=== PATIENT | female | born 1970 | race Two or more races ===

== ENCOUNTER 2017-06-23 16:50 | Emergency (ER) | payer BC ==
[~2017-06-23] VITALS: Ht 160 cm; Wt 85.3 kg
[2017-06-23] MEDS ORDERED: MUPIROCIN22 GM TOPIC (17:04)
[2017-06-23] MEDS ORDERED: BACTRIM DS TAB1 EAC1 ORAL (17:04)
--- NOTE | 2017-06-23 17:19 | Emergency Room Report ---
History of Present Illness General Chief Complaint: Allergic Reaction Source: Patient Present Illness HPI Patient is a 47-year-old female brought in by self after increased generalized body rash. Patient noticed increased itching to the extremities this morning. Patient recently been started on Bactrim for vaginal infection along with mupirocin. Patient denied any fever. She denied any shortness of breath. The patient had no noted mouth lesions. Allergies: Coded Allergies: No Known Allergies (Unverified , 06/23/17) Patient History Past Medical History: see triage record Last Menstrual Period: 06/14/17 Reviewed Nursing Documentation: PMH: Agreed; PSxH: Agreed Nursing Documentation-PMH Past Medical History: No Stated History Review of Systems All Other Systems: negative except mentioned in HPI Physical Exam Vital Signs Date Time Temp Pulse Resp B/P (MAP) Pulse Ox O2 Delivery O2 Flow Rate FiO2 06/23/17 17:00 98.1 91 17 145/88 95 Room Air 98.1 General Appearance: well appearing, no apparent distress, alert, GCS 15 Head: normocephalic, atraumatic ENT: hearing grossly normal, normal voice Neck: full range of motion, supple Respiratory: no respiratory distress, speaking full sentences Musculoskeletal: no calf tenderness Neurologic: normal gait Psychiatric: mood/affect normal Skin: other - generalized fine raised patches Medical Decision Making Diagnostic Impression: Primary Impression: Allergic reaction ER Course Patient presented for skin rash. Differential diagnosis included was not limited to erythema multiforme, allergic reaction, photosensitivity reaction among others. Patient has a benign exam and does not appear to require any further imaging or laboratory testing at this time. patient was given prednisone as well as benadryl. The patient appears to have allergic reaction to sulfa. This may be erythema multiforme. The patient was advised to discontinue Bactrim.The patient is advised to follow up with primary care doctor in 1-2 days. Patient is advised to return if any worsening condition or if any changes in status that are concerning. This report is dictated with [employer] trip rider software which may occasionally lead to discrepancies related to use of this software. Last Vital Signs Date Time Temp Pulse Resp B/P (MAP) Pulse Ox O2 Delivery O2 Flow Rate FiO2 06/23/17 17:00 98.1 91 17 145/88 95 Room Air 98.1 Status: unchanged Disposition: ADMITTED INPATIENT Condition: Serious Jeramie Bashir Jun 23, 2017 17:19
[2017-06-23] MEDS ORDERED: PREDNISONE20 MG ORAL (18:13)
[2017-06-23] MEDS ORDERED: BENADRYL25 MG ORAL (18:13)
[2017-06-23 18:38] VITALS: BP 131/85
[2017-06-23 18:39] VITALS: BP 131/85
== END 2017-06-23 19:26 | disposition other institution (70) ==
LOC: EMR 17:15
DX: T78.40XA Allergy, unspecified, initial encounter (principal); X58.XXXA Exposure to other specified factors, initial encounter; R21 Rash and other nonspecific skin eruption
CPT/HCPCS: 81025; 99285; J7512

== ENCOUNTER 2017-10-08 12:53 | Emergency (ER) | payer BC ==
[~2017-10-08] VITALS: Ht 160 cm; Wt 83.9 kg
[~2017-10-08 12:53] MED LIST: BACTRIM DS TAB1 EAC1 ORAL; BENADRYL25 MG ORAL; MUPIROCIN22 GM TOPIC; PREDNISONE20 MG ORAL
[2017-10-08 13:18] VITALS: BP 154/86
--- NOTE | 2017-10-08 13:39 | Emergency Room Report ---
History of Present Illness General Chief Complaint: Back Pain-No Injury Source: Patient Present Illness HPI Pt. presents to the ED c/o 8 out of 10 in severity right-sided back pain that radiates between the shoulder blade and the mid back 2 days. Patient denies history of previous episodes. Patient states that she does have strenuous work at her job. 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 Patient denies trauma or fall otherwise she denies fevers, chills, recent spinal procedures or history of cancer. Patient denies cough or shortness of breath. Denies rash, paresthesias, saddle anesthesia or incontinence. Allergies: Coded Allergies: SULFA (SULFONAMIDE ANTIBIOTICS) (Verified Allergy, Unknown, 06/23/17) Patient History Past Medical History: see triage record Past Surgical History: none Pertinent Family History: none Last Menstrual Period: 2 weeks ago Now: No Reviewed Nursing Documentation: PMH: Agreed; PSxH: Agreed Nursing Documentation-PMH Past Medical History: No Stated History Review of Systems All Other Systems: negative except mentioned in HPI Physical Exam Vital Signs Date Time Temp Pulse Resp B/P (MAP) Pulse Ox O2 Delivery O2 Flow Rate FiO2 10/08/17 13:02 80 18 154/86 98 Room Air 10/08/17 13:18 98.0 98.0 Sp02 EP Interpretation: reviewed, normal General Appearance: no apparent distress, alert, GCS 15, non-toxic Head: normocephalic, atraumatic ENT: hearing grossly normal, normal voice Neck: full range of motion Respiratory: chest non-tender, lungs clear, normal breath sounds, speaking full sentences Cardiovascular #1: regular rate, rhythm, no edema Genitourinary: normal inspection Musculoskeletal: back normal, gait/station normal, normal range of motion, tender - TTP right paraspinal musculature in the thoracic area, and radiates out near shoulder blade. no midline or bony ttp, FROm of the right arm. pt. ambulatory. Neurologic: alert, oriented x3, responsive, motor strength/tone normal, sensory intact, normal gait, speech normal, grossly normal Psychiatric: judgement/insight normal Skin: normal color, no rash, warm/dry, well hydrated Medical Decision Making PA Attestation Dr. Bashir is my supervising Physician whom patient management has been discussed with. Diagnostic Impression: Primary Impression: Muscle strain of right upper back Qualified Codes: S29.012A - Strain of muscle and tendon of back wall of thorax , initial encounter Additional Impression: Muscle strain of right scapular region Qualified Codes: S46.911A - Strain of unspecified muscle, fascia and tendon at shoulder and upper arm level, right arm, initial encounter ER Course Pt. presents to the ED c/o 8 out of 10 in severity right-sided back pain that radiates between the shoulder blade and the mid back 2 days. Patient denies history of previous episodes. Patient states that she does have strenuous work at her job. 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 Patient denies trauma or fall otherwise she denies fevers, chills, recent spinal procedures or history of cancer. Patient denies cough or shortness of breath. Denies rash, paresthesias, saddle anesthesia or incontinence. Ddx considered but are not limited to Fracture, dislocation, contusion, Sprain/ Strain/Spasm, Vital signs: are WNL, pt. is afebrile H&PE are most consistent with musculoskeletal injury will perform imaging to r/ o fractures/dislocations. ORDERS: - X-ray none required at this time. ED INTERVENTIONS: - d/w pt. conservative treatment, and to follow up with a primary care provider. pt given a list of primary care clinics for follow up. d/w pt. to return to the ED with worsening or new symptoms. DISCHARGE: At this time pt. is stable for d/c to home. Will provide printed patient care instructions, and any necessary prescriptions. Care plan and follow up instructions have been discussed with the patient prior to discharge. Last Vital Signs Date Time Temp Pulse Resp B/P (MAP) Pulse Ox O2 Delivery O2 Flow Rate FiO2 10/08/17 13:18 98.0 80 18 154/86 98 Room Air 98.0 Disposition: HOME, SELF-CARE Condition: Stable Scripts Ibuprofen* (MOTRIN*) 600 Mg Tablet 600 MG ORAL THREE TIMES A DAY, #20 TAB 0 Refills Prov: Tika Tesfaye 10/08/17 Lidocaine (Lidoderm) 1 Each Adh..patch 1 PATCH TOPIC DAILY, #30 PATCH 0 Refills Patch(es) may remain in place for up to 12 hours in any 24-hour period. Prov: Tika Tesfaye 10/08/17 Methocarbamol* (ROBAXIN*) 500 Mg Tablet 1000 MG PO TID, #42 TAB 0 Refills Prov: Tika Tesfaye 10/08/17 Referrals: NON PHYSICIAN (PCP) Patient Instructions: Back Pain, Adult, [id number], Muscle Strain, Easy-to- Read Additional Instructions: Take medications as directed. Follow up with a Primary Care Provider in 3-5 days, even if your symptoms have resolved. --Please review list of primary care clinics, if you do not already have a primary care provider Return sooner to ED if new symptoms occur, or current symptoms become worse. Do not drink alcohol, drive, or operate heavy machinery while taking muscle relaxers ( Robaxin) as this may cause drowsiness. - Please note that this Emergency Department Report was dictated using [employer] technology software, occasionally this can lead to erroneous entry secondary to interpretation by the dictation equipment. Tika Tesfaye Oct 08, 2017 13:39
[2017-10-08] MEDS ORDERED: ROBAXIN500 MG PO (13:40)
[2017-10-08] MEDS ORDERED: IBUPROFEN600 MG ORAL (13:40)
[2017-10-08] MEDS ORDERED: LIDODERM700 M1 TOPIC (13:40)
[2017-10-08 13:50] VITALS: BP 154/86
== END 2017-10-08 13:50 | disposition home or self-care (01) ==
LOC: EMR 13:07
DX: S29.012A Strain of muscle and tendon of back wall of thorax, initial encounter (principal); S46.911A Strain of unspecified muscle, fascia and tendon at shoulder and upper arm level, right arm, initial encounter; X50.0XXA Overexertion from strenuous movement or load, initial encounter; Y93.89 Activity, other specified; Y92.9 Unspecified place or not applicable; Y99.0 Civilian activity done for income or pay; Z88.2 Allergy status to sulfonamides
CPT/HCPCS: 99283